=== PATIENT | female | born 1955 | race Caucasian/White ===

== ENCOUNTER 2017-07-05 21:13 | Emergency (ER) | payer OTHER ==
--- NOTE | 2017-07-05 22:39 | PDOC ---
History of Present Illness - General Chief Complaint: Pain Stated Complaint: PAIN TO RT LEG X 1 MONTH Time Seen by Provider: 07/05/17 22:09 - History of Present Illness Initial Comments: 07/10/17 07:50 Chief complaint: Pain right heel History of present illness: Pain in the right heel for several weeks, worse in the morning, seems to improve with ambulation. Spends long hours standing and walking at work. Worse flat, hard soled shoes Review of systems: No posterior calf swelling or tenderness, no chest pain, shortness of breath, abdominal pain, nausea, vomiting, diarrhea, visual or focal neurologic symptoms, unsteadiness of gait Past medical history: Healthy female, no related medical problems. Specifically , no history of blood clots, DVT, PE, or blood dyscrasia/malignancy Social/family history: As noted above, nonsmoker, otherwise negative Physical exam: Alert oriented well-developed well-nourished no acute distress cheerful and cooperative Afebrile, vital signs normal Lungs clear to P&A. Full breath sounds throughout bilaterally. No wheezes rales or rhonchi CV regular without murmur rub or gallop pulses full and symmetric no JVD or edema no bruits Abdomen benign Right lower extremity: There is no swelling or tenderness of the posterior calf. No edema. No erythema or warmth. There is point tenderness over the plantar fascia medially. Which is quite dramatic. There is no tenderness of the Achilles tendon, the Achilles bursa, and there is full plantar flexion against resistance. Pulses, again, are full and there is no sensory or motor deficit to the lower extremity Impression: Plantar fasciitis Plan: Patient instructed regarding icing procedures, stretching, and toe curling. Proper footwear was recommended including heel cup, arch support, inadequate cushioning. Limited standing and walking until symptoms improved. Anti-inflammatory. Short course. Follow-up with mallet and die cutter if no improvement. Consider custom-made orthotics. Fully ambulatory and in no distress upon discharge to follow-up as directed. Past History - Past Medical History Allergies/Adverse Reactions: Allergies Allergy/AdvReac Type Severity Reaction Status Date / Time No Known Allergies Allergy Verified 01/05/16 10:25 Home Medications: Ambulatory Orders Simvastatin [Zocor -] 40 mg PO HS 01/05/16 Metronidazole 500 mg PO TID #21 tablet 01/06/16 Naproxen [Naprosyn] 375 mg PO BID #14 tablet 07/05/17 Anemia: No Asthma: No Cancer: Yes (fallopian tube removal & 1 ovary) Cardiac Disorders: No CVA: No COPD: No CHF: No Dementia: No Diabetes: No GI Disorders: No Disorders: No HTN: No Hypercholesterolemia: Yes Liver Disease: No Seizures: No Thyroid Disease: Yes - Surgical History Abdominal Surgery: No Appendectomy: No Cardiac Surgery: No Cholecystectomy: No Lung Surgery: No Neurologic Surgery: No Orthopedic Surgery: No - Suicide/Smoking/Psychosocial Hx Smoking History: Former smoker Have you smoked in the past 12 months: No Hx Alcohol Use: No Drug/Substance Use Hx: No Substance Use Type: None, Cocaine *DC/Admit/Observation/Transfer Diagnosis at time of Disposition: Plantar fasciitis - Discharge Dispostion Disposition: HOME Condition at time of disposition: Stable Admit: No - Prescriptions Prescriptions: Naproxen [Naprosyn] 375 mg PO BID #14 tablet - Referrals - Patient Instructions Printed Discharge Instructions: DI for Plantar Fasciitis Additional Instructions: Minimize standing and walking for the next few days. Ice as directed. Anti- inflammatory medication as prescribed. The xiong to recovery and prevention is specific footwear that includes a heel cup for elevation of the heel, abstention arch support, sufficient cushioning to the sole. You may purchase these appliances in the foot section of the pharmacy or have a custom-made orthotic manufactured. In the meantime, avoid shoes with a hard flat sole as this will increase the disability. - Post Discharge Activity Forms/Work/School Notes: Back to Work
[2017-07-05 22:51] VITALS: BP 125/63; PULSE 76; TEMP 97.8; BMI 26.8
== END 2017-07-05 23:06 | disposition home or self-care (01) ==
LOC: FER 21:13
DX: M72.2 Plantar fascial fibromatosis (principal); Z87.891 Personal history of nicotine dependence; E07.9 Disorder of thyroid, unspecified; Z85.89 Personal history of malignant neoplasm of other organs and systems; E78.00 Pure hypercholesterolemia, unspecified
CPT/HCPCS: 99282-25

== ENCOUNTER 2017-08-16 21:32 | Emergency (ER) | payer OTHER ==
[2017-08-16 21:39] VITALS: BP 121/55; PULSE 75; TEMP 97.9; BMI 27.1
--- NOTE | 2017-08-16 21:45 | PDOC ---
History of Present Illness - General History Source: Patient Exam Limitations: No Limitations - History of Present Illness Initial Comments: 08/16/17 22:19 The patient is a 62 year old female, with a significant past medical history of hypothyroidism and skin cancer, who presents to the emergency department with, a rash to the midsternal region. As per patient, she had a rash with associated blisters (resolved) and burning to the midsternal region. She reports seeing a acoustical tile drill press operator who prescribed her a topical cream. Secondary to her symptoms she reports, nausea without emesis and headaches. She denies recent fevers, chills, or dizziness. She denies recent diarrhea or constipation. She denies recent dysuria, frequency, urgency or hematuria. She denies recent chest pain or shortness of breath. Allergies: NKA <Sara Monaco - Last Filed: 08/16/17 22:18> <Wendy Jackson - Last Filed: 08/17/17 03:45> - General Chief Complaint: Pain, Acute Stated Complaint: SHINGLES X 3 DAYS Time Seen by Provider: 08/16/17 21:45 Past History <Sara Monaco - Last Filed: 08/16/17 22:18> - Past Medical History Anemia: No Asthma: No Cancer: Yes (fallopian tube removal & 1 ovary) Cardiac Disorders: No CVA: No COPD: No CHF: No Dementia: No Diabetes: No GI Disorders: No Disorders: No HTN: No Hypercholesterolemia: Yes Liver Disease: No Seizures: No Thyroid Disease: Yes - Surgical History Abdominal Surgery: No Appendectomy: No Cardiac Surgery: No Cholecystectomy: No Lung Surgery: No Neurologic Surgery: No Orthopedic Surgery: No - Suicide/Smoking/Psychosocial Hx Smoking History: Former smoker Have you smoked in the past 12 months: No Information on smoking cessation initiated: No Hx Alcohol Use: No Drug/Substance Use Hx: No Substance Use Type: None <Wendy Jackson - Last Filed: 08/17/17 03:45> - Past Medical History Allergies/Adverse Reactions: Allergies Allergy/AdvReac Type Severity Reaction Status Date / Time No Known Allergies Allergy Verified 08/16/17 21:33 Home Medications: Ambulatory Orders Cephalexin [Keflex] 250 mg PO QID #28 capsule 08/16/17 Mupirocin Ointment [Bactroban] 1 applic TP BID #30 g 08/16/17 Simvastatin [Zocor -] 40 mg PO HS 08/16/17 Review of Systems - Review of Systems Able to Perform ROS?: Yes Comments:: 08/16/17 22:19 GENERAL/CONSTITUTIONAL: No fever or chills. No weakness. HEAD, EYES, EARS, NOSE AND THROAT: No change in vision. No ear pain or discharge. No sore throat. CARDIOVASCULAR: No chest pain or shortness of breath. RESPIRATORY: No cough, wheezing, or hemoptysis. GASTROINTESTINAL: No nausea, vomiting, diarrhea or constipation. GENITOURINARY: No dysuria, frequency, or change in urination. MUSCULOSKELETAL: No joint or muscle swelling or pain. No neck or back pain. SKIN: +Rash to the midsternal region. NEUROLOGIC: No headache, vertigo, loss of consciousness, or change in strength/ sensation. ENDOCRINE: No increased thirst. No abnormal weight change. HEMATOLOGIC/LYMPHATIC: No anemia, easy bleeding, or history of blood clots. ALLERGIC/IMMUNOLOGIC: No hives or skin allergy. All Other Systems: Reviewed and Negative <Sara Monaco - Last Filed: 08/16/17 22:18> *Physical Exam - Vital Signs Last Vital Signs Temp Pulse Resp BP Pulse Ox 97.9 F 75 16 121/55 100 08/16/17 21:35 08/16/17 21:35 08/16/17 21:35 08/16/17 21:35 08/16/17 21:35 - Physical Exam Comments: 08/16/17 22:19 GENERAL: Awake, alert, and fully oriented, in no acute distress HEAD: No signs of trauma EYES: PERRLA, EOMI, sclera anicteric, conjunctiva clear ENT: Auricles normal inspection, hearing grossly normal, nares patent, oropharynx clear without exudates. Moist mucosa NECK: Normal ROM, supple, no lymphadenopathy, JVD, or masses LUNGS: Breath sounds equal, clear to auscultation bilaterally. No wheezes, and no crackles HEART: Regular rate and rhythm, normal S1 and S2, no murmurs, rubs or gallops ABDOMEN: Soft, nontender, normoactive bowel sounds. No guarding, no rebound. No masses EXTREMITIES: Normal range of motion, no edema. No clubbing or cyanosis. No cords, erythema, or tenderness NEUROLOGICAL: Cranial nerves II through XII grossly intact. Normal speech, normal gait SKIN: +Staphylococcal rash on the midsternal region. Without fluctuates. Warm, Dry, normal turgor. <Sara Monaco - Last Filed: 08/16/17 22:18> - Vital Signs Last Vital Signs Temp Pulse Resp BP Pulse Ox 97.9 F 75 16 121/55 100 08/16/17 21:35 08/16/17 21:35 08/16/17 21:35 08/16/17 21:35 08/16/17 21:35 <Wendy Jackson - Last Filed: 08/17/17 03:45> ED Treatment Course - Medications Given in the ED: ED Medications Discontinued Medications Generic Name Dose Route Start Last Admin Trade Name Freq PRN Reason Stop Dose Admin Cephalexin HCl 500 mg 08/16/17 22:03 08/16/17 22:09 Keflex - PO 08/16/17 22:04 500 mg ONCE ONE Administration Valacyclovir HCl 1,000 mg 08/16/17 21:50 08/16/17 22:00 Valtrex - PO 08/16/17 21:51 Not Given ONCE ONE <Sara Monaco - Last Filed: 08/16/17 22:18> - LABORATORY CBC & Chemistry Diagram: 08/16/17 22:10 08/16/17 22:10 <Wendy Jackson - Last Filed: 08/17/17 03:45> Medical Decision Making - Medical Decision Making 08/17/17 03:42 Pt comes stating that she has "shingles" however, the rash between her breasts is more like impatigo. She has no rash along dermatomes on her body. I exaplined to her that she needs keflex and bactroban. She admits later that her acoustical tile drill press operator diagnosed her with the same and started her on mupirocin. I told pt that mupirocin is bactroban. We checked labs on patient, as she tells me that she has a hx of ovarian cancer and she is currently under treatment for skin cancer on her face (with her acoustical tile drill press operator) Pt has a headache and she has nausea and she is sure that it is due to the rash. Labs are normal. CRP is normal. Pt will be sent home with abx and with derm follow up. Exam of pt is normal. <Wendy Jackson - Last Filed: 08/17/17 03:45> *DC/Admit/Observation/Transfer - Attestations Scribe Attestion: 08/16/17 22:21 Documentation prepared by Sara Monaco, acting as diploma medical assistant for Wendy Jackson MD. <Sara Monaco - Last Filed: 08/16/17 22:18> - Discharge Dispostion Admit: No <Wendy Jackson - Last Filed: 08/17/17 03:45> Diagnosis at time of Disposition: Impetigo due to Staphylococcus aureus - Discharge Dispostion Disposition: HOME Condition at time of disposition: Stable - Prescriptions Prescriptions: Cephalexin [Keflex] 250 mg PO QID #28 capsule Mupirocin Ointment [Bactroban] 1 applic TP BID #30 g - Patient Instructions Printed Discharge Instructions: DI for Impetigo
[2017-08-16] MEDS ORDERED: valACYclovir HCL 1000 MG TABLET PO ONE (21:50)
[2017-08-16] MEDS ORDERED: valACYclovir HCL 500 MG TABLET (FP) ONE (21:54)
[2017-08-16] MEDS ORDERED: CEPHALEXIN MONOHYDRATE 500 MG CAPSULE (UD) PO ONE (22:03)
[2017-08-16] MEDS ORDERED: CEPHALEXIN MONOHYDRATE 500 MG CAPSULE (UD) ONE (22:06)
[2017-08-16 22:32] LABS: BASO % 0.7 % (0-2.0); EOS % 2.6 % (0-4.5); HEMATOCRIT 35.1 % (32.4-45.2); HEMOGLOBIN 12.6 GM/dl (10.7-15.3); LYMPH % 49.7 % (8-40); MCH 31.3 pg (25.7-33.7); MCHC 35.9 g/dl (32.0-36.0); MEAN CELL VOLUME 87.2 fl (80-96); MEAN PLT VOLUME 8.1 fl (7.5-11.1); MONO % 6.8 % (3.8-10.2); NEUT % 40.2 % (42.8-82.8); PLATELET COUNT 235 K/MM3 (134-434); RBC 4.02 M/mm3 (3.60-5.2); WHITE BLOOD COUNT 10.8 K/mm3 (4.0-10.8)
[2017-08-16 22:40] LABS: ALBUMIN 3.9 g/dl (3.5-5.0); ALK PHOS 88 U/L (32-92); ANION GAP 5 (8-16); BLOOD UREA NITROGEN 20 mg/dl (7-18); CALCIUM 9.1 mg/dl (8.4-10.2); CHLORIDE 104 mmol/L (98-107); CO2 26 mmol/L (22-28); CREATININE 0.8 mg/dl (0.6-1.3); GLUCOSE,RANDOM 101 mg/dl (74-106); POTASSIUM 3.9 mmol/L (3.5-5.1); SGOT/AST 25 U/L (10-42); SGPT/ALT 19 U/L (10-40); SODIUM 135 mmol/L (136-145); TOT PROT 6.7 g/dl (6.4-8.3)
[2017-08-16 22:50] LABS: BILIRUBIN,TOTAL < 0.5 mg/dl (0.2-1.0)
== END 2017-08-16 22:50 | disposition home or self-care (01) ==
LOC: FER 21:32
DX: L01.09 Other impetigo (principal); E03.9 Hypothyroidism, unspecified; Z85.828 Personal history of other malignant neoplasm of skin; E78.00 Pure hypercholesterolemia, unspecified; E07.9 Disorder of thyroid, unspecified
CPT/HCPCS: 36415; 80053; 85025; 99281-25

== ENCOUNTER 2017-09-05 13:35 | Emergency (ER) | payer OTHER ==
--- NOTE | 2017-09-05 13:40 | PDOC ---
History of Present Illness - General Chief Complaint: Injury Stated Complaint: RT ANKLE INJURY Time Seen by Provider: 09/05/17 13:39 History Source: Patient Exam Limitations: No Limitations - History of Present Illness Initial Comments: 09/05/17 14:11 Ms Miller is a 62-year-old female with a history of low blood pressure, as well as hypothyroidism. She presents emergency department by private auto status post mechanical fall down stairs. Patient states she was in her usual state of health, stepped away from the landing of some stairs to allow a friend to get up the stairs. When she did so she stepped backwards and accidentally fell down the stairs. No head trauma. No loss of consciousness. No focal weakness or numbness. Patient's only complaint is right ankle pain. PMH: Hypothyroidism, hypo-tension. Past surgical history: recent Mohs surgery History: Please see MAR ALLERGIES: NKDA Social: denies drugs or cigarettes GENERAL/CONSTITUTIONAL: No: fever, chills, weakness, loss of appetite. HEAD, EYES, EARS, NOSE AND THROAT: No: change in vision, ear pain, discharge, sore throat, throat swelling. CARDIOVASCULAR: No: chest pain, lightheadedness, palpitations, syncope RESPIRATORY: No: cough, shortness of breath, wheezing GASTROINTESTINAL: No: nausea, vomiting, abdominal pain GENITOURINARY: No: dysuria, hematuria, frequency, urgency, flank pain. MUSCULOSKELETAL: No: back pain, neck pain, joint pain, muscle swelling or pain SKIN: Yes: Post Op scars NEUROLOGIC: No: headache, vertigo, paresthesias, weakness ENDOCRINE: No: unexplained weight gain or loss HEMATOLOGIC/LYMPHATIC: No: anemia, easy bleeding, swelling nodes. GENERAL: The patient is in no acute distress. HEAD: Normal with no signs of trauma. EYES: PERRLA, EOMI, sclera anicteric, conjunctiva clear. ENT: Ears normal, nares patent, oropharynx clear without exudates. Moist mucous membranes. NECK: Normal range of motion, supple without midline tenderness to palpation LUNGS: Breath sounds equal, clear to auscultation bilaterally. No wheezes, and no crackles. HEART:Regular rate and rhythm, normal S1 and S2 without murmur, rub or gallop. ABDOMEN: Soft, nontender, normoactive bowel sounds. No guarding, no rebound. No masses palpable. EXTREMITIES: Normal range of motion NEUROLOGICAL: Cranial nerves II through XII grossly intact. Normal speech. No focal neurological deficits. MUSCULOSKELETAL: Right ankle limited range of motion due to pain. Lateral malleolus tender to palpation. No bruising noted. Mild swelling noted. 2+ dorsalis pedis, 2+ posterior tibialis. Capillary refill less than 2 seconds. Sensation is intact. SKIN: Warm, Dry, no lacerations, no bruising Past History - Past Medical History Allergies/Adverse Reactions: Allergies Allergy/AdvReac Type Severity Reaction Status Date / Time No Known Allergies Allergy Verified 08/16/17 21:33 Home Medications: Ambulatory Orders Cephalexin [Keflex] 250 mg PO QID #28 capsule 08/16/17 Mupirocin Ointment [Bactroban] 1 applic TP BID #30 g 08/16/17 Simvastatin [Zocor -] 40 mg PO HS 08/16/17 Anemia: No Asthma: No Cancer: Yes (fallopian tube removal & 1 ovary) Cardiac Disorders: No CVA: No COPD: No CHF: No Dementia: No Diabetes: No GI Disorders: No Disorders: No HTN: No Hypercholesterolemia: Yes Liver Disease: No Seizures: No Thyroid Disease: Yes - Surgical History Abdominal Surgery: No Appendectomy: No Cardiac Surgery: No Cholecystectomy: No Lung Surgery: No Neurologic Surgery: No Orthopedic Surgery: No - Suicide/Smoking/Psychosocial Hx Smoking History: Former smoker Have you smoked in the past 12 months: No Hx Alcohol Use: No Drug/Substance Use Hx: No Substance Use Type: None Medical Decision Making - Medical Decision Making 09/05/17 14:16 62-year-old female presented to emergency department with right ankle pain after fall down stairs. Patient denies head trauma, loss of consciousness. Patient lateral malleolus is tender to palpation. Differential diagnosis includes but is not limited to: Fracture, ankle sprain. Will do: X-ray ankle and foot. Motrin and Flexeril for pain. Reassessment 09/05/17 14:45 Ankle x-ray: No fracture, no dislocation. Will discharged home. Last patient to rest, ice, elevate ankle. Follow-up with orthopedics if symptoms worsen or persist or change in anyway. Clinical impression: Ankle sprain, initial presentation *DC/Admit/Observation/Transfer Diagnosis at time of Disposition: Right ankle sprain Qualifiers: Encounter type: initial encounter Involved ligament of ankle: other ligament Qualified Code(s): S93.491A - Sprain of other ligament of right ankle, initial encounter - Discharge Dispostion Disposition: HOME Condition at time of disposition: Stable Admit: No - Referrals Referrals: Surjit De La Garza MD [Staff Physician] - - Patient Instructions Printed Discharge Instructions: DI for Ankle Sprain Additional Instructions: Mr. Miller Thank you for coming into the emergency department today. Please ice and elevate your ankle. Please take Motrin for pain If symptoms worsen or do not improve or you develop new symptoms, you can follow up with systems software specialist - Post Discharge Activity Forms/Work/School Notes: Back to Work
[2017-09-05 13:42] VITALS: BP 112/66; PULSE 66; TEMP 98.7; BMI 26.4
[2017-09-05] MEDS ORDERED: IBUPROFEN 600 MG TABLET (FP) PO ONE ×2 (13:56→14:04)
[2017-09-05] MEDS ORDERED: CYCLOBENZAPRINE HCL 10 MG TABLET (FP) PO ONE (13:56)
[2017-09-05] MEDS ORDERED: CYCLOBENZAPRINE HCL 10 MG TABLET (FP) ONE (14:05)
== END 2017-09-05 15:20 | disposition home or self-care (01) ==
LOC: FER 13:35
DX: S93.491A Sprain of other ligament of right ankle, initial encounter (principal); W10.9XXA Fall (on) (from) unspecified stairs and steps, initial encounter; Y93.89 Activity, other specified; Y92.008 Other place in unspecified non-institutional (private) residence as the place of occurrence of the external cause; I95.9 Hypotension, unspecified; E03.9 Hypothyroidism, unspecified
CPT/HCPCS: 73610-TC-RT-FY; 73630-TC-RT-FY; 99282-25

== ENCOUNTER 2019-03-31 22:41 | Emergency (ER) | payer OTHER ==
[2019-03-31 22:47] VITALS: TEMP 97.8; BMI 26.6
[2019-03-31 23:21] LABS: BASO % 0.5 % (0-2.0); HEMATOCRIT 35.9 % (32.4-45.2); HEMOGLOBIN 12.4 GM/dl (10.7-15.3); LYMPH % 54.7 % (8-40); MCH 30.8 pg (25.7-33.7); MCHC 34.4 g/dl (32.0-36.0); MEAN CELL VOLUME 89.5 fl (80-96); MEAN PLT VOLUME 8.6 fl (7.5-11.1); MONO % 6.4 % (3.8-10.2); NEUT % 36.4 % (42.8-82.8); PLATELET COUNT 230 K/MM3 (134-434); RBC 4.01 M/mm3 (3.60-5.2); RDW 12.9 % (11.6-15.6); WHITE BLOOD COUNT 11.4 K/mm3 (4.0-10.8)
[2019-03-31 23:33] LABS: BILIRUBIN,TOTAL 0.5 mg/dl (0.2-1); CALCIUM 8.6 mg/dl (8.5-10); CREATININE 0.8 mg/dl (0.55-1.3); POTASSIUM 3.5 mmol/L (3.5-5.1); TOT PROT 6.9 g/dl (6.4-8.2)
--- NOTE | 2019-03-31 23:50 | PDOC ---
Documentation entered by Calixto Florez SCRIBE, acting as scribe for Wendy Elkins MD. Wendy Elkins MD: This documentation has been prepared by the Gautam moss Daniel, SCRIBE, under my direction and personally reviewed by me in its entirety. I confirm that the documentation accurately reflects all work, treatment, procedures, and medical decision making performed by me. History of Present Illness - General Chief Complaint: Chest Pain Stated Complaint: CHEST TIGHTNESS Time Seen by Provider: 03/31/19 22:47 History Source: Patient Exam Limitations: No Limitations - History of Present Illness Initial Comments: 03/31/19 23:00 The patient is a 63 year old female with a past medical history of HLD, hypothyroidism, and skin cancer here today for evaluation of nausea and chest tightness. The patient reports that at approximately 4 PM today she developed an acute onset of nausea and intermittent chest tightness that lasted for approximately 1-2 hours. She notes associated general weakness and denies any strenuous activity prior to the episode. She reports that her symptoms became better with rest and has not recurred. Patient denies headache, lightheadedness. Denies fever, chills. Denies shortness of breath. Denies vomiting, diarrhea, abdominal pain. Allergies: NKA Social history: Denies tobacco, alcohol, and illicit drug use Surgical history: x2, Salpingo-Oophorectomy ROS Constitutional: no fevers or chills. No weakness HEENT: no headache or dizziness. No congestion. No visual/hearing disturbances. CVS: +chest tightness. no syncope. Resp: no sob. No cough. Gastrointestinal: +nausea. no abdominal pain, vomiting, diarrhea. Genitourinary: no urinary sx, hematuria. MUSCULOSKELETAL: No joint pain and swelling. No neck or back pain. SKIN: no redness or skin changes, no discharge, no rash. No wounds. Hematologic: no easy bruising/bleeding. NEUROLOGIC: +generalized weakness. No headache, dizziness, LOC or altered mental status. No numbness or tingling. Psych: no anxiety or depression Allergic/Immunologic: no allergies All other systems reviewed and negative, or as documented in HPI. Physical exam: General: Well appearing, awake and alert, NAD. HEENT: NCAT, PERRL, EOMI, clear conjunctiva, anicteric, moist mucus membranes, clear oropharynx, no oral lesions.. Neck: neck supple, FROM Resp: CTAB, normal and even respirations, no respiratory distress CVS: RRR, no murmurs, 2+ peripheral pulses throughout, no peripheral edema Abdomen: soft, NTND, no rebound or guarding. No CVAT. Back: nontender, normal inspection and ROM MSK: no edema, GEORGE x4, ROM intact. No clubbing or cyanosis. normal bulk and tone. Extremities: no calf tenderness Neuro: alert, oriented appropriately; no focal neurologic deficits Psych: Calm and cooperative Skin: warm and well perfused, cap refill <2 sec, normal color 03/31/19 23:58 Past History - Past Medical History Allergies/Adverse Reactions: Allergies Allergy/AdvReac Type Severity Reaction Status Date / Time No Known Allergies Allergy Verified 09/06/17 13:35 Home Medications: Ambulatory Orders Simvastatin [Zocor -] 40 mg PO HS 08/16/17 Anemia: No Asthma: No Cancer: Yes (fallopian tube removal & 1 ovary, SKIN) Cardiac Disorders: No CVA: No COPD: No CHF: No Dementia: No Diabetes: No GI Disorders: No Disorders: No HTN: No Hypercholesterolemia: Yes Liver Disease: No Seizures: No Thyroid Disease: Yes - Surgical History Abdominal Surgery: No Appendectomy: No Cardiac Surgery: No Cholecystectomy: No Lung Surgery: No Neurologic Surgery: No Orthopedic Surgery: No - Psycho Social/Smoking Cessation Hx Smoking History: Never smoked Have you smoked in the past 12 months: No If you are a former smoker, when did you quit?: YEARS Hx Alcohol Use: No Drug/Substance Use Hx: No Substance Use Type: None *Physical Exam - Vital Signs Last Vital Signs Temp Pulse Resp BP Pulse Ox 97.8 F 61 16 110/56 L 100 03/31/19 22:42 03/31/19 22:42 03/31/19 22:42 03/31/19 22:42 03/31/19 22:42 Heart Score/ECG Review - History History: Slightly suspicious - Electrocardiogram EKG: Normal - Age Age: 45-65 - Risk Factors Risk Factors Heart Score: Yes Hx Hypercholesterolemia Based on the list above the patient has:: 1-2 risk factors - Troponin Troponin: </= normal limit - Score Heart Score - Total: 2 #1 ECG reviewed & interpreted by me at: 23:15 General ECG Interpretation: Sinus Rhythm, Normal Intervals Compared to previous ECG there are: No significant change 03/31/19 2 EKG sinus bradycardia 51 bpm, no interval abnormalities, narrow QRS, ST and T wave segments and morphology normal. Nonspecific T wave abnormalities #2 ECG reviewed & interpreted by me at: 01:40 General ECG Interpretation: Sinus Rhythm, Normal Intervals, No acute ischemic changes Compared to previous ECG there are: No significant change 04/01/19 01:41 sinus bradycardia 45 bpm ED Treatment Course - LABORATORY CBC & Chemistry Diagram: 03/31/19 23:05 03/31/19 23:05 - RADIOLOGY Radiology Studies Ordered: Category Date Time Status CHEST PA & LAT [RAD] Stat Radiology 03/31/19 22:59 Ordered Medical Decision Making - Medical Decision Making 04/01/19 03:00 Vital Signs Temp Pulse Resp BP Pulse Ox 97.8 F 44 L 16 112/62 96 03/31/19 22:42 04/01/19 01:41 03/31/19 22:42 04/01/19 01:41 04/01/19 01:41 Vital signs reviewed within normal limits, bradycardia is noted patient is otherwise healthy and normotensive so unlikely to be of clinical significance DDx chest pain: ACS, coronary vasospasm, NSTEMI, arrhythmia, unstable angina, PE , dissection, PUD, esophageal spasm, GERD, gastritis, costochondritis, pneumonia , pleurisy, pericarditis/myocarditis. dehydration, electrolyte/metabolic derangements. Considered but clinically doubt based on HPI and PE: Low suspicion for pulmonary embolism or dissection. Chest pain negative: No evidence of ACS, pericarditis, myocarditis, pulmonary embolism, pneumothorax, pneumonia, Zoster, or esophageal perforation. Historically not abrupt in onset, tearing or ripping, pulses symmetric, no evidence of aortic dissection. EKG normal sinus rhythm bradycardia, no interval abnormalities, narrow QRS, ST and T wave segments and morphology normal. Nonspecific T wave abnormalities, unchanged from prior Chest pain HEART score 2 which denotes Low risk and probability for ACS, less than 1% risk for MACE at 4-6 wks Patient without any significant risk factors, atypical cp in nature, troponins are negative x2, EKG is stable with sinus rhythm bradycardia no ischemic findings, ST elevations or depressions. She has been chest pain-free during the ED course and has unremarkable work-up here. Patient is encouraged to follow-up with manager relocation and primary care doctor, referrals have been provided as well as manager relocation for appropriate follow-up. Pt to be discharged in stable condition. Patient made aware of clinical impression, treatment recommendations and disposition plan, return precautions discussed (including but not limited to new or persistent/worsening symptoms, pain, fevers, or signs of infection, chest pain, respiratory distress, inability to tolerate oral intake, dehydration, syncope, or neurologic changes) . Follow up with PMD and/or manager relocation as recommended, follow up information provided, take medications as instructed for duration of time. continue with supportive care, avoid triggers and precipitants. All questions answered to patient's satisfaction and expressed understanding and comfort with this. At the time of discharge, the patient is alert, clinically improved, tolerating po and verbalizes understanding of instructions, satisfied with the care received and felt comfortable with the plan. Patient does not suffer from an acute life- threatening medical condition at this time and is safe for outpatient follow- up. 04/01/19 03:04 Discharge - Discharge Information Problems reviewed: Yes Clinical Impression/Diagnosis: Chest pain Qualifiers: Chest pain type: unspecified Qualified Code(s): R07.9 - Chest pain, unspecified Condition: Stable Disposition: HOME - Admission No - Follow up/Referral Referrals: Carlos Tyler MD [Staff Physician] - Gardenia Perez MD [Staff Physician] - [facility] [place] [facility] [place] [Provider Group] [facility] [Provider Group] [facility] [Provider Group] Miguel Molina MD [Staff Physician] - - Patient Discharge Instructions Patient Printed Discharge Instructions: DI for Chest Pain Additional Instructions: 1) Please follow-up with your primary care doctor in the next 1-2 days. Please call tomorrow for for any urgent issues. you have been given referrals for manager relocation for appropriate followup. 2) You were given a copy of the tests performed today. Please bring the results with you and review them with your primary care doctor. Your laboratory / imaging results were normal, including chest x ray and cardiac enzymes 3) If you have any worsening of symptoms or any other concerns please return to the ED immediately. Return if worsening symptoms including fevers, headache, vomiting, visual or hearing disturbances, abdominal pain, chest pain, shortness of breath, syncope, dehydration, inability to take things by mouth/vomiting, altered mental status, or worsening concerning symptoms. 4) Please continue taking your home medications as directed. Stay well hydrated and rest adequately. Make an appointment. If you cannot follow-up with your primary care doctor please return to the ED - Post Discharge Activity
[2019-04-01 01:42] VITALS: BP 112/62; PULSE 44
--- NOTE | 2019-04-01 14:17 | EKG ---
Test Reason : Blood Pressure : / mmHG Vent. Rate : 045 BPM Atrial Rate : 045 BPM P-R Int : 140 ms QRS Dur : 082 ms QT Int : 424 ms P-R-T Axes : 057 019 031 degrees QTc Int : 366 ms SINUS BRADYCARDIA OTHERWISE NORMAL ECG WHEN COMPARED WITH ECG OF 31-MAR-2019 23:15, NO SIGNIFICANT CHANGE WAS FOUND Confirmed by ASHISH LUNSFORD MD ([id number]) on 04/01/2019 2:16:44 PM Referred By: KATHERYN ALVARES Confirmed By:ASHISH LUNSFORD MD
--- NOTE | 2019-04-01 14:17 | EKG ---
Test Reason : Blood Pressure : / mmHG Vent. Rate : 051 BPM Atrial Rate : 051 BPM P-R Int : 136 ms QRS Dur : 082 ms QT Int : 396 ms P-R-T Axes : 056 013 028 degrees QTc Int : 364 ms SINUS BRADYCARDIA OTHERWISE NORMAL ECG NO PREVIOUS ECGS AVAILABLE Confirmed by ASHISH LUNSFORD MD ([id number]) on 04/01/2019 2:16:51 PM Referred By: KATHERYN ALVARES Confirmed By:ASHISH LUNSFORD MD
== END 2019-04-01 03:08 | disposition home or self-care (01) ==
LOC: FER 22:41
DX: R07.89 Other chest pain (principal); E78.5 Hyperlipidemia, unspecified; E03.9 Hypothyroidism, unspecified; Z85.828 Personal history of other malignant neoplasm of skin
CPT/HCPCS: 36415; 71046-TC-FY; 80053; 82550; 83735; 84484; 85025; 93005; 99283-25

== ENCOUNTER 2021-01-07 23:15 | Emergency (ER) | payer OTHER ==
[2021-01-07 23:21] VITALS: BP 115/70; PULSE 90; TEMP 98; BMI 27.0
[2021-01-07] MEDS ORDERED: ACETAMINOPHEN 1000 MG/100 ML VIAL (NON FORMULARY) IVPB ONE (23:59)
[2021-01-07] MEDS ORDERED: METOCLOPRAMIDE HCL INJECTION 10 MG/2 ML VIAL IVPB ONE (23:59)
[2021-01-07] MEDS ORDERED: FAMOTIDINE 20 MG/50 ML IVPB 20 MG/50 ML MG IVPB ONE (23:59)
[2021-01-08] MEDS ORDERED: LACTATED RINGERS SOLUTION 1000 ML INFUS.BAG IV ONE (00:14)
[2021-01-08] MEDS ORDERED: ACETAMINOPHEN INJECTION 100 ML IVPB ONE (00:16)
[2021-01-08] MEDS ORDERED: FAMOTIDINE 20 MG/50 ML IVPB 20 MG/50 ML MG IVPB ONE (00:16)
[2021-01-08] MEDS ORDERED: METOCLOPRAMIDE HCL INJECTION 10 MG/2 ML VIAL ONE (00:17)
[2021-01-08 00:37] LABS: BASO % 0.9 % (0-2.0); EOS % 1.7 % (0-4.5); HEMATOCRIT 36.4 % (32.4-45.2); HEMOGLOBIN 12.5 GM/dL (10.7-15.3); LYMPH % 59.1 % (8-40); MCH 30.1 pg (25.7-33.7); MCHC 34.4 g/dl (32.0-36.0); MEAN CELL VOLUME 87.7 fl (80-96); MEAN PLT VOLUME 8.5 fl (7.5-11.1); MONO % 5.7 % (3.8-10.2); NEUT % 32.6 % (42.8-82.8); PLATELET COUNT 279 10^3/uL (134-434); RBC 4.15 M/mm3 (3.60-5.2); RDW 13.3 % (11.6-15.6); WHITE BLOOD COUNT 13.7 K/mm3 (4.0-10.0)
[2021-01-08 00:51] LABS: CHLORIDE 110 mmol/L (98-107); SODIUM 142 mmol/L (136-145)
[2021-01-08 00:52] LABS: INR 0.91 (0.83-1.09)
[2021-01-08 00:54] LABS: CALCIUM 8.8 mg/dL (8.5-10.1)
[2021-01-08 00:55] LABS: ACTIVATED PTT 31.1 SECONDS (25.2-36.5); ALBUMIN 3.6 g/dl (3.4-5.0); ANION GAP 6 MMOL/L (8-16); CO2 27 mmol/L (21-32); GLUCOSE,RANDOM 94 mg/dL (74-106); MAGNESIUM 2.3 mg/dL (1.8-2.4)
[2021-01-08 00:58] LABS: CREATININE 1.1 mg/dL (0.55-1.3); SGOT/AST 44 U/L (15-37); SGPT/ALT 26 U/L (13-61)
[2021-01-08 00:59] LABS: BILIRUBIN,TOTAL 0.3 mg/dL (0.2-1)
[2021-01-08 01:00] LABS: ALK PHOS 101 U/L (45-117)
== END 2021-01-08 03:11 | disposition home or self-care (01) ==
LOC: JER 23:15
PROC: 3E0333Z Introduction of Anti-inflammatory into Peripheral Vein, Percutaneous Approach (ICD-10-PCS; principal; 2021-01-07)
PROC: 3E033GC Introduction of Other Therapeutic Substance into Peripheral Vein, Percutaneous Approach (ICD-10-PCS; 2021-01-07)
PROC: 3E033GC Introduction of Other Therapeutic Substance into Peripheral Vein, Percutaneous Approach (ICD-10-PCS; 2021-01-07)
DX: R10.84 Generalized abdominal pain (principal)
CPT/HCPCS: 36415; 74177-TC; 80053; 82272; 82550; 82553; 83605; 83735; 84484; 85025; 85610; 85730; 86850; 86900; 86901; 93005; 93010; 99285-25; J0131; Q9967

== ENCOUNTER 2021-04-04 11:02 | Emergency (ER) | payer OTHER ==
[2021-04-04 11:10] VITALS: BMI 26.8
[2021-04-04] MEDS ORDERED: SODIUM CHLORIDE 1,000 ML IV STA (12:00)
[2021-04-04] MEDS ORDERED: morphine CARPU-JECT 4 MG/1 ML DISP.SYRIN IVPUSH ONE (12:00)
[2021-04-04] MEDS ORDERED: ONDANSETRON 4 MG/2 ML VIAL IVPUSH ONE (12:00)
[2021-04-04] MEDS ORDERED: ONDANSETRON 4 MG/2 ML VIAL ONE (12:52)
[2021-04-04] MEDS ORDERED: morphine SULFATE 4 MG/ML VIAL ONE (12:52)
[2021-04-04 13:09] LABS: URINE APPEARANCE CLEAR; URINE BILIRUBIN NEGATIVE (NEGATIVE); URINE COLOR YELLOW; URINE GLUCOSE (UA) NEGATIVE (NEGATIVE); URINE KETONE NEGATIVE (NEGATIVE); URINE LEUK ESTERASE NEGATIVE (NEGATIVE); URINE NITRITE NEGATIVE (NEGATIVE); URINE PROTEIN NEGATIVE (NEGATIVE)
[2021-04-04 13:26] LABS: HEMATOCRIT 40.7 % (32.4-45.2); HEMOGLOBIN 13.6 GM/dL (10.7-15.3); MCH 29.7 pg (25.7-33.7); MCHC 33.4 g/dl (32.0-36.0); MEAN CELL VOLUME 88.9 fl (80-96); MEAN PLT VOLUME 7.9 fl (7.5-11.1); PLATELET COUNT 274 10^3/uL (134-434); RBC 4.57 M/mm3 (3.60-5.2); RDW 13.3 % (11.6-15.6); WHITE BLOOD COUNT 13.2 K/mm3 (4.0-10.0)
[2021-04-04 13:36] LABS: ALBUMIN 3.8 g/dl (3.4-5.0); BLOOD UREA NITROGEN 17.6 mg/dL (7-18); CALCIUM 9.4 mg/dL (8.5-10.1)
[2021-04-04 13:39] LABS: CREATININE 0.9 mg/dL (0.55-1.3)
[2021-04-04 13:41] LABS: BILIRUBIN,TOTAL 0.6 mg/dL (0.2-1); TOT PROT 7.6 g/dl (6.4-8.2)
[2021-04-04 14:49] VITALS: BP 123/64; PULSE 65; TEMP 98.3
[2021-04-04 15:26] LABS: ANISOCYTOSIS 1+; MACROCYTOSIS 0; OVALOCYTE 1+; PLATELET ESTIMATE NORMAL
== END 2021-04-04 15:29 | disposition home or self-care (01) ==
LOC: JER 11:02
PROC: 3E033NZ Introduction of Analgesics, Hypnotics, Sedatives into Peripheral Vein, Percutaneous Approach (ICD-10-PCS; principal; 2021-04-04)
PROC: 3E033GC Introduction of Other Therapeutic Substance into Peripheral Vein, Percutaneous Approach (ICD-10-PCS; 2021-04-04)
PROC: 3E0337Z Introduction of Electrolytic and Water Balance Substance into Peripheral Vein, Percutaneous Approach (ICD-10-PCS; 2021-04-04)
DX: R10.30 Lower abdominal pain, unspecified (principal)
CPT/HCPCS: 36415; 74177-TC; 80053; 81003; 83690; 85025; 87086; 93005; 93010; 99285-25; C9803; Q9967; U0003; U0005